=== PATIENT | male | born 1980 | race Caucasian/White ===

== ENCOUNTER 2016-10-01 20:16 | Emergency (ER) | payer SELFPAY ==
[2016-10-01 23:15] VITALS: BP 120/84
[2016-10-01] MEDS ORDERED: KETOROLAC TROMETHAMINE 30 MG/ML VIAL ONE (23:56)
[2016-10-01] MEDS ORDERED: CYCLOBENZAPRINE HCL 10 MG TABLET ONE (23:56)
[2016-10-01] MEDS ORDERED: CYCLOBENZAPRINE HCL 10 MG TABLET PO ONE (23:57)
[2016-10-01] MEDS ORDERED: ACETAMINOPHEN 500 MG TABLET PO ONE (23:57)
[2016-10-01] MEDS ORDERED: KETOROLAC TROMETHAMINE 30 MG/ML VIAL IM ONE (23:57)
--- NOTE | 2016-10-02 00:03 | ERNOTE ---
Upper Extremity HPI - Narrative Date of Service: 10/01/16 - General Extremities Pain Location: shoulder: right - pain with movement, other: right - right chest Source: patient Exam Limitations: no limitations - Immun/Allergies/Home Medications Immunizations: IMMUNIZATION HX Immunizations Up to Date No History of Influenza Vaccine No Hx Pneumococcal Vaccination No Allergies/Adverse Reactions: Allergies Allergy/AdvReac Type Severity Reaction Status Date / Time No Known Allergies Allergy Verified 10/01/16 20:43 Home Medications: HOME MEDICATIONS Venlafaxine HCl [Effexor Xr] 150 mg PO DAILY 03/03/15 [Last Taken Unknown] clonazePAM [Klonopin] 1 mg PO TID PRN 03/03/15 [Last Taken Unknown] lamoTRIgine [Lamictal] 200 mg PO HS 03/03/15 [Last Taken Unknown] Cyclobenzaprine HCl [Flexeril] 10 mg PO TID PRN #30 tablet 10/01/16 [Last Taken Unknown] Naproxen [Naprosyn] 500 mg PO BID PRN #20 tablet 10/01/16 [Last Taken Unknown] - History of Present Illness Narrative: This morning he was kicked by a horse in the right shoulder/chest. He has taken Advil but the pain has continued to worsen. There were no complaints of shortness of breath or loss of sensation in the right hand. Pain is increased with movement of the right shoulder. Occurred: this morning Severity: moderate Method of Injury: Reports: direct blow Loss of Consciousness: Reports: no loss of consciousness Modifying Factors - (Improves): Reports: rest Modifying Factors - (Worsens): Reports: movement Associated Symptoms: Denies: loss of feeling, loss of power (rt arm) Other Injuries: Reports: none Review of Systems - Review of Systems Constitutional: Present: no symptoms reported EYE: Present: no symptoms reported ENT: Present: no symptoms reported Respiratory: Present: no symptoms reported Cardiology: Present: no symptoms reported Gastrointestinal/Abdominal: Present: no symptoms reported Skin: Present: no symptoms reported Neurological: Present: no symptoms reported Endocrine: Present: no symptoms reported Hematologic/Lymphatic: Present: no symptoms reported - Patient's Past Medical History Patient History - Medical: GERD, Kidney stone Patient History - Cardiac/Respiratory: No pertinent hx Patient History - Cancer: No Hx of Cancer Patient History - Surgical Procedures: Other Patient History - Other: None - Social History Living Situations: home Smoking Status: Never smoker Do you dip or chew tobacco: Yes Alcohol Use: rarely Drug Use: none, other - Immunizations Immunizations Up to Date: No Hx Pneumococcal Vaccination: No History of Influenza Vaccine: No Physical Exam - Physical Exam Narrative: Appears mildly uncomfortable. General Appearance: Present: no apparent distress Eye Exam: Normal inspection: bilateral Ears, Nose, Throat: Present: normal ENT inspection Neck: Present: normal inspection Respiratory: Present: no respiratory distress Cardiovascular/Chest: Present: regular rate, rhythm Gastrointestinal/Abdominal: Present: nondistended Back Exam: Present: normal inspection Extremity Exam: Present: normal inspection, other - The right shoulder could be abducted to 180 degrees with minimal pain. 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 Vital Signs: Vital Signs 10/01/16 10/01/16 20:35 23:14 Temperature 36.3 C L Pulse Rate 79 79 Respiratory 18 18 Rate Blood Pressure 121/78 120/84 O2 Sat by Pulse 96 94 Oximetry - X-Ray X-Ray #1 X-Ray: clavicle Interpretation: Interp. by me X-ray Comments: No fractures or pneumothorax - Progress/Reassessment Chief Complaint: Upper Extremity Injury/Problem Departure Clinical Impression: Contusion, chest wall - Departure Disposition: Home self-care Condition: Good Instructions: Chest Contusion Print Language: Mauritian Additional Instructions: If you become short of breath return to the ED. Apply ice to the contused area as needed. Follow up with your primary care physician on Tuesday as needed. Prescriptions: Cyclobenzaprine HCl [Flexeril] 10 mg PO TID PRN #30 tablet PRN Reason: Pain Naproxen [Naprosyn] 500 mg PO BID PRN #20 tablet PRN Reason: Pain
== END 2016-10-02 00:04 | disposition home or self-care (01) ==
LOC: ER 20:16
DX: S20.219A Contusion of unspecified front wall of thorax, initial encounter (principal); F17.220 Nicotine dependence, chewing tobacco, uncomplicated; W55.12XA Struck by horse, initial encounter